=== PATIENT | male | born 1950 | race Caucasian/White ===

== ENCOUNTER → 2017-12-25 | Outpatient (CLI) | payer MEDICARE ==
--- NOTE | 2017-12-25 15:59 | MR ---
EXAMINATION TYPE: MR lumbar spine wo con DATE OF EXAM: 12/25/2017 COMPARISON: 11/18/2014 HISTORY: Back pain for 2 years TECHNIQUE: Multiplanar, multisequence images of the lumbar spine were acquired. FINDINGS: There is a very mild retrolisthesis of L3 on L4 that in comparison to the prior 2014 is unc hanged. The remaining vertebral bodies maintain normal vertebral body height and alignment. Mild dege nerative changes seen as small anterior osteophytes and intervertebral disc desiccation as well as in tervertebral disc space narrowing at multiple levels and facet arthropathy. Paraspinal musculature is unremarkable. Conus medullaris is also unremarkable terminating at L1. L1-L2: Very small right paracentral disc herniation abuts the ventral subarachnoid space and extends into the right lateral recess creating mild right neural foraminal narrowing. Overall spinal canal an d left neural foramen are patent. Finding has slightly progressed from the prior exam. L2-L3: There is a broad-based disc bulge and facet arthropathy creating mild bilateral neural foramin al narrowing. Left lateral annular tear is also identified. L3-L4: There is a broad-based disc bulge and mild likely degenerative retrolisthesis that is stable L 3 on L4. Facet arthropathy is also identified creating mild bilateral neural foraminal narrowing as s een on the prior exam but without significant spinal canal stenosis. There is only minimal impression upon the ventral subarachnoid space. L4-L5: Very mild broad-based disc bulge is seen that examination with facet arthropathy creates minim al bilateral neural foraminal narrowing. L5-S1: Disc desiccation without spinal canal stenosis or neural foraminal narrowing. IMPRESSION: 1. Slight progression of degenerative disc disease at L1-L2 and comparison to the prior 2014 with a n ew very small right paracentral disc herniation creating mild right neural foraminal narrowing. 2. Mild multilevel degenerative disc disease of the lumbar spine creating variable degrees of neural foraminal narrowing without spinal canal stenosis. 3. Minimal retrolisthesis of L3 on L4, likely on a degenerative basis and unchanged from 2015.
== END | disposition home or self-care (01) ==
LOC: RADMRIMAIN 14:54
PROVIDERS: ATTEND Family Medicine
DX: M99.73 Connective tissue and disc stenosis of intervertebral foramina of lumbar region (principal); M51.26 Other intervertebral disc displacement, lumbar region; M43.16 Spondylolisthesis, lumbar region; M51.36 Other intervertebral disc degeneration, lumbar region
CPT/HCPCS: 72148

== ENCOUNTER → 2023-03-09 | Outpatient (CLI) | payer MEDICARE ==
[2023-03-09 13:49] LABS: African American GFR (CKD) 88 (>60 ml/min/1.73 sqM); Blood Urea Nitrogen 20 mg/dL (9-20); Non-African American GFR(CKD) 76 (>60 ml/min/1.73 sqM)
--- NOTE | 2023-03-09 14:56 | CT ---
EXAMINATION TYPE: CT angio chest CT DLP: 1495.7 mGycm, Automated exposure control for dose reduction was used. DATE OF EXAM: 03/09/2023 2:48 PM COMPARISON: None CLINICAL INDICATION:Male, 72 years old with history of I71.20 THORACIC AORTIC ANEURYSM; chest tightne ss TECHNIQUE/CONTRAST: CTA scan of the thorax is performed without and with IV Contrast, patient injected with 100 mL of Iso cortney 370, MIP images are created and reviewed these are created on a separate workstation.. FINDINGS: Pulmonary Artery: There is no evidence for a filling defect within the pulmonary vasculature to sugge st acute pulmonary embolism. The pulmonary artery is of normal size. Lungs/Pleura: No evidence of focal consolidation, pleural effusion or pneumothorax. Airway: Large airways are patent. Heart: Heart is within normal limits for size. Atherosclerosis of the coronary arteries. Vasculature: No evidence of aortic aneurysm. Mediastinum: No gross evidence of adenopathy. Musculoskeletal: Moderate degenerative disc disease changes are present throughout the thoracolumbar spine. Soft Tissues: Unremarkable. Lower neck: No significant findings. Upper Abdomen: Layering gallstones in the gallbladder. IMPRESSION: 1. No evidence of pulmonary embolism or evidence for aortic aneurysm. 2. Moderate coronary artery calcifications. 3. Cholelithiasis. 2.
== END | disposition home or self-care (01) ==
LOC: RADCTMAIN 12:35
PROVIDERS: ATTEND Family Medicine
DX: I71.20 Thoracic aortic aneurysm, without rupture, unspecified (principal); I25.10 Atherosclerotic heart disease of native coronary artery without angina pectoris; K80.20 Calculus of gallbladder without cholecystitis without obstruction; R07.89 Other chest pain
CPT/HCPCS: 82565; 84520; 71275; 36415; Q9967

== ENCOUNTER → 2023-03-20 | Outpatient (CLI) | payer MEDICARE ==
--- NOTE | 2023-03-21 13:04 | CA ---
Transthoracic Echo Report Name: Joe Abbott Age: 72 Gender: M : 1950 Exam Date: 03/20/2023 17:54 Exam Location: [place] [facility] Ht (in): 71 Wt (lb): 272 Ordering Physician: Jose Alberto Gonzalez MD Attending/Referring Phys: Glenda Ariza PAC Reed Or Wind Instrument Tuner Estephanie Graham RDCS Procedure CPT: Indications: R07.89 other chest pain Cardiac Hx: Technical Quality: Fair Contrast 1: Total Dose (mL): Contrast 2: Total Dose (mL): MEASUREMENTS (Male / Female) Normal Values 2D ECHO LV Diastolic Diameter PLAX 4.6 cm 4.2 - 5.9 / 3.9 - 5.3 cm LV Systolic Diameter PLAX 3.2 cm IVS Diastolic Thickness 1.5 cm 0.6 - 1.0 / 0.6 - 0.9 cm LVPW Diastolic Thickness 1.2 cm 0.6 - 1.0 / 0.6 - 0.9 cm LV Relative Wall Thickness 0.6 RV Internal Dim ED PLAX 3.9 cm LA Volume 61.1 cm??? 18 - 58 / 22 - 52 cm??? M-MODE Aortic Root Diameter MM 4.0 cm LA Systolic Diameter MM 4.0 cm LA Ao Ratio MM 1.0 AV Cusp Separation MM 2.3 cm DOPPLER AV Peak Velocity 117.0 cm/s AV Peak Gradient 5.5 mmHg AV Mean Velocity 91.4 cm/s AV Mean Gradient 3.6 mmHg AV Velocity Time Integral 24.7 cm LVOT Peak Velocity 95.9 cm/s LVOT Peak Gradient 3.7 mmHg LVOT Velocity Time Integral 19.2 cm MV Area PHT 3.5 cm??? Mitral E Point Velocity 53.2 cm/s Mitral A Point Velocity 102.8 cm/s Mitral E to A Ratio 0.5 MV Deceleration Time 215.6 ms MV E' Velocity 7.5 cm/s Mitral E to MV E' Ratio 7.1 TR Peak Velocity 205.2 cm/s TR Peak Gradient 16.8 mmHg Right Ventricular Systolic Press 21.8 mmHg FINDINGS Left Ventricle Moderately increased septal wall thickness. Left ventricular cavity size normal. Normal left ventricular systolic function with no obvious regional wall motion abnormalities. Left ventricular ejection fraction is estimated at 55-60 %. Right Ventricle Mild right ventricular dilatation. Right ventricular systolic pressure within normal limits. Right Atrium Normal right atrial size. Left Atrium Mildly increased left atrial volume. Mitral Valve Structurally normal mitral valve. No mitral stenosis, or prolapse.mild mitral regurgitation. Aortic Valve Trileaflet aortic valve. No aortic valve stenosis , mild regurgitation. Tricuspid Valve Mild tricuspid regurgitation.structurally normal tricuspid valve. Pulmonic Valve Pulmonic valve not well visualized. Pericardium No pericardial effusion. Aorta Normal size aortic root and proximal ascending aorta. CONCLUSIONS 1. Normal left ventricle size and systolic function 2. Mild mitral and aortic regurgitation 3. Mild tricuspid regurgitation with no evidence of pulmonary hypertension Previewed by: Dr. Adriel Diez MD (Electronically Signed) Final Date: 21 March 2023 13:03
== END | disposition home or self-care (01) ==
LOC: RADECHMAIN 17:41
PROVIDERS: ATTEND Family Medicine
DX: I08.3 Combined rheumatic disorders of mitral, aortic and tricuspid valves (principal); R07.89 Other chest pain
CPT/HCPCS: 93306

== ENCOUNTER 2023-10-13 05:38 | Day surgery (SDC) | payer MEDICARE ==
--- NOTE | 2023-10-12 09:49 | P.HPOR ---
History of Present Illness H&P Date: 10/12/23 Chief Complaint: Right shoulder pain The patient is a 72-year-old [id number] retired gentleman who presents with right shoulder pain worsening over the past 6 months. He notes anterior and lateral pain with overhead activity. He is having night symptoms. He's tried home exercises along with an injection and medications without much relief. He notes daily pain that limits him. Review of Systems As per HPI Past Medical History Past Medical History: Diabetes Mellitus, Hyperlipidemia, Hypertension, Sleep Apnea/CPAP/BIPAP Additional Past Medical History / Comment(s): uses cpap, History of Any Multi-Drug Resistant Organisms: None Reported Past Surgical History: Orthopedic Surgery Additional Past Surgical History / Comment(s): lft shoulder, Past Anesthesia/Blood Transfusion Reactions: No Reported Reaction Smoking Status: Never smoker - Past Family History Father Family Medical History: No Reported History Medications and Allergies Home Medications and Allergies Comment(s): Aspirin, atorvastatin, benazepril, metoprolol Allergies Allergy/AdvReac Type Severity Reaction Status Date / Time Unable to Assess Allergy Verified 10/10/23 11:29 Physical Examination - Shoulder right Tenderness with palpation: anterior, bicipital groove Pain: with abduction, with forward flexion ROM: forward flexion: 160 degrees ROM: internal rotation: lower lumbar ROM: external rotation: 70 degrees Crepitus with motion: Yes Strength: abduction: 4/5 Strength: external rotation: 4/5 Tests: internal impingement tests: positive, external impingment tests: positive Results The patient is a well-developed well-nourished male approximately 5 foot 11, 270 pounds of endomorphic habitus. HEENT exam is nonfocal, neck is supple. He is tender about the right shoulder anterior subacromial space. Moderate crepitus is noted. Carlos, Neer sign, and speed tests are positive. His distal neurovascular exam appears intact in the right upper extremity. - Diagnostic results Shoulder MRI: image reviewed (MRI of the right shoulder shows evidence of a full-thickness rotator cuff tear involving supraspinatus with some retraction and fatty infiltration.) Assessment and Plan Assessment: Right shoulder impingement/symptomatic rotator cuff tear Right proximal bicipital tendinosis Plan: I talked to the patient at length regarding his condition along with treatment options. At this point he is quite symptomatic despite previous conservative measures. After a thorough discussion he opts to proceed with surgery. We'll plan to proceed with right shoulder arthroscopy with probable subacromial decompression, rotator cuff debridement versus repair, and possible biceps tenotomy. We'll likely perform as an outpatient procedure. Risks and benefits were discussed at length in layman's terms.
[2023-10-13] MEDS ORDERED: droPERidol 5 MG/2 ML VIAL IVP ONE (06:16)
[2023-10-13] MEDS: LACTATED RINGERS 1,000 ML IV SCH (06:35)
[2023-10-13] MEDS: LIDOCAINE 1% (10MG/ML) FOR IV START INTRADERMA PRN (06:35)
[2023-10-13 06:48] LABS: Glucose,Whole Blood 140 mg/dL (70-110)
[2023-10-13] MEDS: ONDANSETRON 4 MG/2 ML VIAL IVP ONE (06:50)
[2023-10-13] MEDS: DEXAMETHASONE SOD PHOSPHATE 4 MG/ML 1 ML VIAL IV ONE (06:50)
[2023-10-13] MEDS: MIDAZOLAM 2 MG/2 ML VIAL IVP ONE (07:02)
[2023-10-13] MEDS ORDERED: PROPOFOL 10 MG/ML 20 ML VIAL IV ONE (07:26)
[2023-10-13] MEDS ORDERED: ROCURONIUM 10 MG/ML (5 ML VIAL) IV ONE (07:26)
[2023-10-13] MEDS ORDERED: fentaNYL (PF) 50 MCG/ML 2 ML AMP ONE (07:26)
[2023-10-13] MEDS ORDERED: ROPIVACAINE 5 MG/ML 30 ML VIAL ONE (07:26)
[2023-10-13] MEDS ORDERED: SUCCINYLCHOLINE CHLORIDE 200 MG/10 ML VIAL IV ONE (07:26)
[2023-10-13] MEDS ORDERED: LIDOCAINE 1% INJ 10MG/ML (20 ML MDV) ONE (07:26)
[2023-10-13] MEDS ORDERED: PHENYLEPHRINE-0.9% NACL SYG 1,000 MCG/10 ML SYRINGE ONE (07:26)
[2023-10-13] MEDS ORDERED: DEXAMETHASONE SOD PHOSPHATE 4 MG/ML 1 ML VIAL ONE (07:26)
[2023-10-13] MEDS ORDERED: GLYCOPYRROLATE 0.2 MG/ML 2 ML VIAL ONE (07:26)
[2023-10-13] MEDS ORDERED: NEOSTIGMINE 1 MG/ML 10 ML VIAL ONE (07:26)
[2023-10-13] MEDS: EPINEPHrine (PF) 1 ML in SODIUM CHLORIDE 0.9% IRRIGATIO 3,000 ML IRRIGATION ONE ×4 (07:30)
[2023-10-13] MEDS: ceFAZolin 3 GM in SODIUM CHLORIDE 0.9% 100 ML IVPB PRN (07:30)
[2023-10-13 07:55] VITALS: TEMP 97.2
[2023-10-13] MEDS: LACTATED RINGERS 1,000 ML IV ONE (08:44)
--- NOTE | 2023-10-13 09:04 | P.OP ---
Date of Procedure: 10/13/23 Preoperative Diagnosis: Right symptomatic rotator cuff tear Postoperative Diagnosis: Right shoulder impingement/3 cm rotator cuff tear/acromioclavicular joint arthritis Procedure(s) Performed: Right shoulder arthroscopic subacromial decompression/distal clavicular resection/rotator cuff repair Implants: Arthrex 4.75 mm swivel lock anchor 2, 5.5 mm swivel lock anchor 2 Anesthesia: GETA Surgeon: Oseas Mauricio Clinical Pharmacy Manager #1: Oskar Silva Estimated Blood Loss (ml): 10 Pathology: none sent Condition: stable Disposition: PACU Indications for Procedure: The patient is a 72-year-old male who presents with progressive right shoulder pain and weakness despite conservative measures. A discussion of the risks and benefits of operative intervention versus continued conservative measures was made with the patient. He opted to proceed with surgery. Operative risks to include infection, neurovascular injury, development of blood clots, possible tendon rerupture, possible postoperative stiffness, and possible need for subsequent procedures was discussed. Informed consent was obtained. Operative Findings: As below Description of Procedure: The patient was brought to the operating room, and after induction of general anesthesia was placed in a beachchair position. A preoperative interscalene block was placed for postoperative analgesia. I examined the right shoulder. There was no gross block to passive motion or gross glenohumeral instability. The [] upper extremity was prepped and draped in normal fashion. The bony outlines the acromion, distal clavicle, and coracoid process were outlined with a skin marker. The glenohumeral joint was inflated with 50 mL of saline utilizing a spinal needle from posterior approach. A posterior portal was made through a 5 mm skin incision 1 cm medial and inferior to the posterior lateral border time. A blunt trocar was used to easily into the joint. Diagnostic arthroscopy was performed. An anterior portal was made just lateral to the coracoid process entering the joint above the subscapularis tendon. The subscapularis tendon appeared to be intact. Anterior labrum was intact. The inferior recess was inspected. The posterior labrum was intact. The biceps and its anchor appear to be intact. On inspection the rotator cuff, a full- thickness tear involving supraspinatus and a portion the infraspinatus was noted with some retraction. The arthroscope was then placed into the subacromial space. A lateral portal was made 2 centimeters inferior to the anterior lateral border of the acromion. The rotator cuff was then mobilized with a traction suture. This was then easily brought back to the greater tuberosity. The soft tissue on the undersurface of the acromion was debrided with a motorized shaver and electrocautery clearly defining the anterior medial and lateral borders as well as the distal clavicle. An anterior inferior acromioplasty was performed with a motorized nishant starting anterolateral, then extending this posteriorly, then extending this medially. I converted to a flat acromion and this was verified in the posterior and lateral viewing portals. The distal clavicle appear to impinge on the subacromial space. The distal 8 mm was resected with a motorized nishant. The greater tuberosity was lightly decorticating with a shaver down to a bleeding bony surface. An accessory super ior lateral portal was made just off the lateral edge of the acromion for anchor placement. 2 anchors were then placed just off the articular surface with the appropriate starting awl. 4.75 mm anchors preloaded with #2 fiber tape were placed. Good purchase was obtained. These fiber tapes were then passed the rotator cuff with a scorpion suture passer. A lateral row was created crisscrossing these tapes. 5.5 mm swivel lock anchors x2 were placed laterally. Good purchase was obtained. Final arthroscopic view showed adequate compression at the footprint. The arthroscope was then removed. The portals were closed with simple 3-0 nylon sutures. A sterile dressing was applied in addition to an abductor brace. The patient was then awoken from general anesthesia and transferred to recovery room in good condition. Blood loss was estimated at 10 mL. No complications were incurred. Sponge and needle counts were correct in the case. Oskar KELLEY assisted and the major components of the case to include arm positioning, anchor placement, and rotator cuff repair.
[2023-10-13] MEDS: HYDROmorphone 0.5 MG/0.5 ML SYRINGE IVP PRN (09:14)
[2023-10-13 09:26] LABS: Glucose,Whole Blood 128 mg/dL (70-110)
[2023-10-13 11:31] VITALS: BP 143/78; PULSE 78; RESP 18
--- NOTE | 2023-10-15 10:27 | P.ANPRN ---
Procedure Note - Anesthesia - Nerve Block Performed Right Interscalene Single Time Out Performed: Yes Date of Procedure: 10/13/23 Procedure Start Time: :02 Procedure Stop Time: 07:09 Location of Patient: PreOp Indication: Acute Post-Operative Pain, Requested by Surgeon Sedation Type: Sedate with meaningful contact maintained Preparation: Sterile Prep Position: Supine Needle Types: Pajunk Needle Gauge: 21 Ultrasound used to visualize needle placement: Yes Ultrasound used to observe medication spread: Yes Blood Aspirated: No Pain Paresthesia on Injection Noted: No Resistance on Injection: Normal Image Stored and Saved: Yes Events: Other (see comment) (Ropivacaine 0.5% 10 cc plus dexamethasone 4 mg)
== END 2023-10-13 10:57 | disposition home or self-care (01) ==
LOC: OR 05:38
PROVIDERS: ATTEND Orthopaedic Surgery
DX: M75.101 Unspecified rotator cuff tear or rupture of right shoulder, not specified as traumatic (principal); M19.011 Primary osteoarthritis, right shoulder; M75.41 Impingement syndrome of right shoulder; G89.18 Other acute postprocedural pain; I10 Essential (primary) hypertension; E78.5 Hyperlipidemia, unspecified; E11.9 Type 2 diabetes mellitus without complications; G47.33 Obstructive sleep apnea (adult) (pediatric); Z98.890 Other specified postprocedural states; Z79.82 Long term (current) use of aspirin; Z79.84 Long term (current) use of oral hypoglycemic drugs; Z79.899 Other long term (current) drug therapy
CPT/HCPCS: 64415; 29827; 29826; 29824; C1713 ×2; C1894; J2250; J0330; J1100; J2710; J0690; J2405; J0171; J2001; J3010; J2795; J2704; J1170; J2371

== ENCOUNTER 2023-10-14 01:44 | Emergency (ER) | payer MEDICARE ==
[2023-10-14 02:03] VITALS: TEMP 98
[2023-10-14] MEDS: HYDROmorphone 1 MG/ML 1 ML SYRINGE IM STA (02:51)
--- NOTE | 2023-10-14 03:19 | ED ---
Extremity Problem HPI - General Chief complaint: Extremity Problem,Nontraumatic Stated complaint: Post Op pain Time Seen by Provider: 10/14/23 02:10 Source: patient Mode of arrival: ambulatory Limitations: no limitations - History of Present Illness Initial comments: 72-year-old male presenting with chief complaint of right shoulder pain. Patient had surgery earlier today with Dr. Huntley. He was sent home with [place]. He reports that the [place] was not affecting his pain. The pain eventually got so intense that he came to the ER for relief. No numbness or tingling. No discoloration. No swelling. He still has full range of motion of the fingers and hand. He is in his shoulder immobilizer. No chest pain or difficulty breathing. - Related Data Home Medications Medication Instructions Recorded Confirmed Atorvastatin Calcium 20 mg PO HS 10/12/23 10/12/23 Benazepril HCl 20 mg PO DAILY 10/12/23 10/12/23 Febuxostat 80 mg PO DAILY 10/12/23 10/12/23 Metoprolol Succinate (ER) [Toprol 12.5 mg PO DAILY 10/12/23 10/12/23 Xl] Pioglitazone [Actos] 45 mg PO DAILY 10/12/23 10/12/23 Semaglutide [Ozempic] 0.25 mg SQ FR 10/12/23 10/12/23 metFORMIN HCL [Glucophage] 1,000 mg PO BID 10/12/23 10/12/23 Previous Rx's Medication Instructions Recorded HYDROcodone/APAP 7.5-325MG [Canton 1 tab PO Q6HR PRN #28 tab 10/13/23 7.5-325] Cyclobenzaprine [Flexeril] 10 mg PO TID PRN #15 tab 10/14/23 Allergies Allergy/AdvReac Type Severity Reaction Status Date / Time No Known Allergies Allergy Verified 10/14/23 01:48 Review of Systems ROS Statement: Those systems with pertinent positive or pertinent negative responses have been documented in the HPI. ROS Other: All systems not noted in ROS Statement are negative. Past Medical History Past Medical History: Diabetes Mellitus, Hyperlipidemia, Hypertension, Sleep Apnea/CPAP/BIPAP Additional Past Medical History / Comment(s): uses cpap, History of Any Multi-Drug Resistant Organisms: None Reported Past Surgical History: Orthopedic Surgery Additional Past Surgical History / Comment(s): lft shoulder, Past Anesthesia/Blood Transfusion Reactions: No Reported Reaction Past Psychological History: No Psychological Hx Reported Smoking Status: Never smoker Past Alcohol Use History: None Reported Past Drug Use History: None Reported - Past Family History Father Family Medical History: No Reported History General Exam Limitations: no limitations General appearance: alert, in no apparent distress Head exam: Present: atraumatic, normocephalic Eye exam: Present: normal appearance Neck exam: Present: normal inspection. Absent: meningismus Respiratory exam: Absent: respiratory distress Cardiovascular Exam: Present: regular rate Right Shoulder Exam: Absent: swelling, deformity, erythema Vascular: Present: radial pulse (2+). Absent: vascular compromise Neurological exam: Present: alert, oriented X3 Psychiatric exam: Present: normal affect, normal mood Skin exam: Present: warm, dry Course Vital Signs 10/14/23 10/14/23 01:45 04:25 Temperature 98 F Pulse Rate 92 71 Respiratory 18 16 Rate Blood Pressure 195/85 135/73 O2 Sat by Pulse 98 96 Oximetry Medical Decision Making - Medical Decision Making Was pt. sent in by a medical professional or institution (Dr. PA, FISH BAIT PICKER, urgent care, hospital, or group home...) When possible be specific @ -No Did you speak to anyone other than the patient for history (EMS, parent, family, police, friend...)? What history was obtained from this source @ -No Did you review nursing and triage notes (agree or disagree)? Why? @ -I reviewed and agree with nursing and triage notes Were old charts reviewed (outside hosp., previous admission, EMS record, old EKG, old radiological studies, urgent care reports/EKG's, group home records)? Report findings @ -Records from his surgery earlier today reviewed Differential Diagnosis (chest pain, altered mental status, abdominal pain women, abdominal pain men, vaginal bleeding, weakness, fever, dyspnea, syncope, headache, dizziness, GI bleed, back pain, seizure, CVA, palpatations, mental health, musculoskeletal)? @ -Differential Musculoskeletal Muscular strain, contusion, ligament sprain, fracture, arthritis, septic arthritis, bursitis, cellulitis, muscle spasm, nerve compression, DVT, arterial occlusion, herpes zoster, electrolyte abnormality, tumor.... This is not meant to be in all inclusive list EKG interpreted by me (3pts min.). @ -As above X-rays interpreted by me (1pt min.). @ -None done CT interpreted by me (1pt min.). @ -None done U/S interpreted by me (1pt. min.). @ -None done What testing was considered but not performed or refused? (CT, X-rays, U/S, labs)? Why? @ -None What meds were considered but not given or refused? Why? @ -None Did you discuss the management of the patient with other professionals (cameron carrillo i.e. , PA, [employer] BAIT PICKER, lab, RT, psych nurse, hospice social worker, respooler, teacher, workers' compensation hearings officer, case assembler)? Give summary @ -No Was smoking cessation discussed for >3mins.? @ -No Was critical care preformed (if so, how long)? @ -No Were there social determinants of health that impacted care today? How? (Homelessness, low income, unemployed, alcoholism, drug addiction, transportation, low edu. Level, literacy, decrease access to med. care, fdc, rehab)? @ -No Was there de-escalation of care discussed even if they declined (Discuss DNR or withdrawal of care, Hospice)? DNR status @ -No What co-morbidities impacted this encounter? (DM, HTN, Smoking, COPD, CAD, Cancer, CVA, ARF, Chemo, Hep., AIDS, mental health diagnosis, sleep apnea, morbid obesity)? @ -None Was patient admitted / discharged? Hospital course, mention meds given and route, prescriptions, significant lab abnormalities, going to OR and other pertinent info. @ -72-year-old male present with chief complaint of uncontrolled postoperative pain to the right shoulder. He had surgery with Dr. Huntley earlier today. His [place] that he was prescribed after surgery is not alleviating his pain. On exam he is neurovascularly intact. He is given Dilaudid, Toradol, Norflex. On reassessment he reports improvement in his pain. Instructed to follow-up with his surgeon. Discharged home. Follow-up with PCP. Report back to ER with any new or worsening symptoms. Discussed return parameters and answered all questions. Patient conveyed verbal understanding and agreed to the plan. I discussed this case in detail with my attending Dr. Nur Undiagnosed new problem with uncertain prognosis? @ -No Drug Therapy requiring intensive monitoring for toxicity (Heparin, Nitro, Insulin, Cardizem)? @ -No Were any procedures done? @ -No Diagnosis/symptom? @ -Postoperative pain Acute, or Chronic, or Acute on Chronic? @ -Acute Uncomplicated (without systemic symptoms) or Complicated (systemic symptoms)? @ -Uncomplicated Side effects of treatment? @ -No Exacerbation, Progression, or Severe Exacerbation? @ -No Poses a threat to life or bodily function? How? (Chest pain, [place], [place], pneumonia, PE, COPD, DKA, ARF, appy, cholecystitis, CVA, Diverticulitis, Homicidal, Suicidal, threat to staff... and all critical care pts) @ -No Disposition Clinical Impression: Post-op pain Disposition: HOME SELF-CARE Condition: Good Additional Instructions: Follow-up with your surgeon. Report back to ER with any new or worsening symptoms. Take medications as prescribed. Prescriptions: Cyclobenzaprine [Flexeril] 10 mg PO TID PRN #15 tab PRN Reason: Spasms Is patient prescribed a controlled substance at d/c from ED?: No Referrals: Jose Alberto Gonzalez MD [Primary Care Provider] - 1-2 days Oseas Mauricio MD [STAFF PHYSICIAN] - 1-2 days Time of Disposition: 04:18
[2023-10-14] MEDS: ORPHENADRINE 30 MG/ML 2 ML VIAL IM STA (03:34)
[2023-10-14] MEDS: KETOROLAC 15 MG/ML 1 ML VIAL IM STA (03:35)
[2023-10-14 04:43] VITALS: BP 135/73; PULSE 71; RESP 16
== END 2023-10-14 04:25 | disposition home or self-care (01) ==
LOC: EC 01:44
DX: G89.18 Other acute postprocedural pain (principal); M25.511 Pain in right shoulder
CPT/HCPCS: 99284; 96372 ×3; J2360; J1170; J1885